=== PATIENT | female | born 1980 | race Two or more races ===

== ENCOUNTER → 2024-09-06 | Outpatient (CLI) | payer BC, SELFPAY ==
--- NOTE | 2024-09-06 13:00 | XR_ITS ---
Examination: Breast ultrasound, unilateral, left complete Date and time of exam: September 06, 2024 1332 hours INDICATIONS: Mammogram August 29, 2023 22 mm circumscribed mass upper left breast, left breast sonogram March 29, 2024 10:00 oval mass lobular margins 24 x 22 mm Technique: Real-time siddiqi scale ultrasonographic imaging performed left breast including all 4 quadrants as well as nipple retroareolar and axillary region. Findings: 10:00 mass lobular margins 24 x 18 x 21 mm Retroareolar cyst 12 x 11 mm IMPRESSION: BI-RADS Category 3: Probably benign findings Recommend 1 additional 6 month left breast sonogram follow-up to document continued stability of 10:00 nodule left breast
--- NOTE | 2024-09-06 13:30 | XR_ITS ---
Examination: Diagnostic digital mammography, bilateral Computer aided detection 3-D breast Tomosynthesis, bilateral Date and time of exam: September 06, 2024 1341 hours INDICATIONS: Family history breast cancer, history left breast biopsy September 2023, negative, 10:00 nodule lobular margins 24 x 22 mm on left breast sonogram March 29, 2024 Technique: Nonmagnified MLO, CC views of the breasts to been obtained, reconstructed from 3-D Tomosynthesis images. R2 computer aided detection program utilized for evaluation of suspicious masses and/or abnormal calcifications. 3-D Tomosynthesis images obtained. Findings: The breasts are heterogeneously dense, which may obscure small masses Breast biopsy marker adjacent to nodule 10:00 position left breast Benign calcifications Implants are intact No interval suspicious masses Left breast sonogram today demonstrates indistinct margins of the biopsied nodule Impression: BI-RADS Category 4: Suspicious for malignancy Recommend repeat biopsy of the 10:00 nodule under ultrasound guidance.
== END | disposition home or self-care (01) ==
LOC: CDIM 13:00
PROVIDERS: PCP Specialist; Referring Provider Specialist; Visit Provider Specialist
DX: R92.342 Mammographic extreme density, left breast (principal); N63.22 Unspecified lump in the left breast, upper inner quadrant
CPT/HCPCS: 76641; 77062; 77066; G0279

== ENCOUNTER → 2024-11-28 | Outpatient (CLI) | payer BC, SELFPAY ==
[2024-11-28 12:36] LABS: Basophils % (Auto) 0 % (0-2.5); Eosinophils # (Auto) 0.1 Thou/mm3 (0.0-0.5); Eosinophils % (Auto) 1 % (0-10); Hematocrit 34.8 % (36.0-46.0); Hemoglobin 11.6 g/dL (12.0-16.0); Immature Granulocytes % (Auto) 0 % (0-0); Immature Granulocytes Auto 0.01 Thou/mm3 (0.00-0.00); Lymphocytes % (Auto) 40 % (10-50); Mean Corpuscular HGB Conc 33.3 g/dl (31.0-37.0); Mean Corpuscular Hemoglobin 26.3 pg (25.0-35.0); Mean Corpuscular Volume 79 fL (80-100); Monocytes # (Auto) 0.4 Thou/mm3 (0.0-0.8); Monocytes % (Auto) 9 % (0-12); Neutrophils # (Auto) 2.5 Thou/mm3 (1.8-7.7); Neutrophils % (Auto) 50 % (37-80); Nucleated Red Blood Cell % 0 /100 WBC (0); Platelet Count 294 Thou/mm3 (140-440); Red Blood Count 4.41 Miln/mm3 (4.00-5.20)
[2024-11-28 12:41] LABS: Glucose Estimated Average 105 mg/dL (80-131); Hemoglobin A1C 5.3 % Hgb (4.8-6.0)
[2024-11-28 12:56] LABS: Collection Type, Urine Clean Catch
[2024-11-28 13:16] LABS: Bacteria,Urine Rare; Bilirubin,Urine Negative (Negative); Blood,Urine 3+ (Negative); Clarity,Urine Clear (Clear/Hazy); Color,Urine Colorless (Lt Yel-Yel); Culture Indicated,Urine Not Indicated; Glucose, Urine Negative (Negative); Ketones,Urine Negative (Negative); Leukocyte Esterase,Urine Negative (Negative); Nitrite,Urine Negative (Negative); PH,Urine 6.5 (5.0-7.0); Protein,Urine Trace (Neg - Trace); RBC,Urine 63 /hpf (0-3); Specific Gravity,Urine 1.006 (1.001-1.035); Squamous Epithelial Cell,Urine < 1 /hpf (0-5); Urobilinogen,Urine Negative mg/dL (0.0-1.0); WBC,Urine 1 /hpf (0-5)
[2024-11-28 13:18] LABS: Alanine Aminotransferase 14 U/L (10-49); Albumin, Serum 4.2 gm/dL (3.5-5.0); Albumin/Globulin Ratio 1.7 (1.2-2.2); Alkaline Phosphatase 56 U/L (46-116); Anion Gap 9 (7-16); Aspartate Amino Transferase 14 U/L (0-34); BUN/Creatinine Ratio 21 Ratio (12-20); Bilirubin,Total 0.3 mg/dL (0.3-1.2); Blood Urea Nitrogen 17 mg/dL (9-23); Calcium 9.3 mg/dL (8.3-10.6); Calcium (Corrected) 9.3 mg/dL (8.5-10.1); Carbon Dioxide 26.4 mMol/L (20.0-31.0); Cardiac Risk Estimate 2.5 RATIO (3.7-5.6); Chloride 103 mMol/L (98-107); Cholesterol 203 mg/dL (132-200); Creatinine (Component) 0.8 mg/dL (0.6-1.3); Globulin 2.5 gm/dL (2.3-3.5); Glucose 102 mg/dL (74-106); HDL Cholesterol 82 mg/dL (40-60); LDL Cholesterol,Calculated 100 mg/dL (0-130); Osmolality,Calculated 277 (275-295); Potassium 4.1 mMol/L (3.4-5.1); Sodium 138 mMol/L (136-145); Thyroid Stimulating Hormone 0.57 uIU/mL (0.55-4.78); Total Protein 6.7 gm/dL (5.7-8.2); Triglycerides 106 mg/dL (30-150); eGFR > 60 See Note
== END | disposition home or self-care (01) ==
PROVIDERS: PCP Specialist; Referring Provider Specialist; Visit Provider Specialist
DX: E78.5 Hyperlipidemia, unspecified (principal); K76.0 Fatty (change of) liver, not elsewhere classified; R53.83 Other fatigue; D64.9 Anemia, unspecified; R73.01 Impaired fasting glucose
CPT/HCPCS: 36415; 80053; 80061; 81001; 83036; 84443; 85025

== ENCOUNTER → 2025-05-16 | Outpatient (CLI) | payer BC, SELFPAY ==
[2025-05-16 09:21] LABS: Collection Type, Urine Clean Catch
[2025-05-16 09:46] LABS: Bilirubin,Urine Negative (Negative); Blood,Urine Negative (Negative); Clarity,Urine Clear (Clear/Hazy); Color,Urine Colorless (Lt Yel-Yel); Culture Indicated,Urine Not Indicated; Glucose, Urine Negative (Negative); Ketones,Urine Negative (Negative); Leukocyte Esterase,Urine Negative (Negative); Nitrite,Urine Negative (Negative); PH,Urine 7.0 (5.0-7.0); Protein,Urine Negative (Neg - Trace); RBC,Urine 1 /hpf (0-3); Specific Gravity,Urine 1.008 (1.001-1.035); Squamous Epithelial Cell,Urine 2 /hpf (0-5); Urobilinogen,Urine Negative mg/dL (0.0-1.0); WBC,Urine 1 /hpf (0-5)
[2025-05-16 09:50] LABS: Glucose Estimated Average 114 mg/dL (80-131); Hemoglobin A1C 5.6 % Hgb (4.8-6.0)
[2025-05-16 09:55] LABS: Alanine Aminotransferase 9 U/L (10-49); Albumin, Serum 4.6 gm/dL (3.5-5.0); Albumin/Globulin Ratio 1.9 (1.2-2.2); Alkaline Phosphatase 52 U/L (46-116); Anion Gap 9 (7-16); Aspartate Amino Transferase 20 U/L (0-34); BUN/Creatinine Ratio 10 Ratio (12-20); Bilirubin,Total 0.7 mg/dL (0.3-1.2); Blood Urea Nitrogen 9 mg/dL (9-23); Calcium 9.5 mg/dL (8.3-10.6); Calcium (Corrected) 9.5 mg/dL (8.5-10.1); Carbon Dioxide 26.5 mMol/L (20.0-31.0); Cardiac Risk Estimate 2.2 RATIO (3.7-5.6); Chloride 105 mMol/L (98-107); Cholesterol 216 mg/dL (132-200); Creatinine (Component) 0.9 mg/dL (0.6-1.3); Globulin 2.4 gm/dL (2.3-3.5); Glucose 87 mg/dL (74-106); HDL Cholesterol 99 mg/dL (40-60); LDL Cholesterol,Calculated 102 mg/dL (0-130); Osmolality,Calculated 277 (275-295); Potassium 4.0 mMol/L (3.4-5.1); Sodium 140 mMol/L (136-145); Thyroid Stimulating Hormone 0.57 uIU/mL (0.55-4.78); Total Protein 7.0 gm/dL (5.7-8.2); Triglycerides 76 mg/dL (30-150); eGFR > 60 See Note
[2025-05-16 09:58] LABS: AFP Non-Pregnant < 1.30 ng/mL (<8.10)
== END | disposition home or self-care (01) ==
LOC: COPL 08:49
PROVIDERS: PCP Specialist; Referring Provider Specialist; Visit Provider Specialist
DX: K76.0 Fatty (change of) liver, not elsewhere classified (principal); E66.811 Obesity, class 1; R80.9 Proteinuria, unspecified; R73.01 Impaired fasting glucose; Z86.39 Personal history of other endocrine, nutritional and metabolic disease
CPT/HCPCS: 36415; 80053; 80061; 81001; 82105; 83036; 84443